=== PATIENT | female | born 1945 ===

== ENCOUNTER 2025-02-12 09:25 | Outpatient (REF) | payer OTHER, SELFPAY ==
[2025-02-12 17:26] LABS: MANUAL DIFF FLAG NO
[2025-02-12 17:55] LABS: Basophils Percent Auto 0.5 % (0-2); Eosinophils Absolute Auto 0.1 X10*3/uL (0.0-0.4); Eosinophils Percent Auto 1.6 % (0-4); Hematocrit 41.8 % (37.0-47.0); Hemoglobin 13.7 g/dl (12.0-16.0); Imm Gran Abs Auto 0.01 X10*3/uL (0.00-0.03); Imm Gran Pct Auto 0.2 % (0.0-0.4); Lymphocytes Absolute Auto 1.7 X10*3/uL (1.2-4.9); Lymphocytes Percent Auto 29.3 % (20-40); Mean Corpuscular HGB Conc 32.8 g/dl (31.0-35.0); Mean Corpuscular Hemoglobin 27.8 pg (27.0-33.0); Mean Corpuscular Volume 84.8 fL (80.0-98.0); Mean Platelet Volume 12.2 fL (9.4-12.3); Monocytes Absolute Auto 0.5 X10*3/uL (0.1-1.2); Monocytes Percent Auto 9.1 % (2-11); Neutrophils Absolute Auto 3.4 x10*3/uL (2.0-8.3); Neutrophils Percent Auto 59.3 % (45-73); Platelet Count 243 X10*3/uL (160-400); Red Blood Count 4.93 X10*6/uL (4.20-5.50); Red Cell Distribution Width 14.5 % (11.0-16.0); White Blood Count 5.7 X10*3/uL (4.8-10.8)
[2025-02-12 18:00] LABS: Alanine Aminotransferase 16 U/L (0-31); Albumin Level 4.5 g/dL (3.5-5.0); Alkaline Phosphatase 86 U/L (39-117); Anion Gap 14 (12-20); Aspartate Amino Transferase 23 U/L (5-31); Bilirubin Total 0.3 mg/dL (0.0-1.0); Blood Urea Nitrogen 12 mg/dL (9-16); Calcium 9.8 mg/dL (8.4-10.2); Carbon Dioxide 27 mmol/L (22-29); Chloride 102 mmol/L (96-108); Estimated Glomerular Filt Rate > 60; Glucose Random 103 mg/dL (60-115); Sodium 139 mmol/L (135-145); Total Protein 7.6 g/dL (6.5-8.0)
[2025-02-12 18:16] LABS: Ferritin 45 ng/mL (10-250); TSH reflex Free T4 3.18 uIU/mL (0.32-4.0)
[2025-02-12 18:30] LABS: Erythrocyte Sedimentation Rate 7 MM/HR (0-20)
[2025-02-12 18:33] LABS: Folate 7.6 ng/mL (> or = 4.0); Vitamin B12 406 pg/mL (200-900)
[2025-02-16 12:09] LABS: Anti Nuclear Antibody Screen NEGATIVE (NEGATIVE)
[2025-02-17 15:53] LABS: Vitamin D 25-OH, D2 <4 ng/mL; Vitamin D 25-OH, D3 26 ng/mL; Vitamin D 25-OH, Total 26 ng/mL (30-100)
== END 2025-02-12 09:26 | disposition home or self-care (01) ==
LOC: HO.HKASLDS 09:25
PROVIDERS: Visit Provider Psychiatry & Neurology Neurology
DX: G25.3 Myoclonus (principal); G25.2 Other specified forms of tremor
CPT/HCPCS: 36415; 80053; 82306; 82607; 82728; 82746; 84443; 85025; 85652; 86038; 99202

== ENCOUNTER 2025-02-12 09:25 | Outpatient (AMB) | payer OTHER, SELFPAY ==
--- NOTE | 2025-02-12 09:29 | MHC.OFFVIS ---
Vital Signs 02/12/25 09:32 Height 5 ft 3 in Weight 133 lb BMI 23.6 BP 128/78 Blood Pressure Location Rt brachial Position Sitting Pulse 66 Pulse Source Pulse Oximeter Pulse Oximetry (%) 97 Oxygen Delivery Method Room Air Intake Visit Reasons: ENP: Parkinson's Intake Note: Patient referred for parkinson's Allergies acetaminophen (From Percocet) Allergy (Unknown, Verified 02/12/25 09:32) Unknown ciprofloxacin (From Cipro) Allergy (Unknown, Verified 02/12/25 09:32) Unknown morphine Allergy (Unknown, Verified 02/12/25 09:32) Unknown oxycodone (From Percocet) Allergy (Unknown, Verified 02/12/25 09:32) Unknown HPI Comments Details: 79Y/o Right handed female comes for evaluation of tremors. she is accompanied by her Grand daughter who is also her AGRICULTURAL LOAN OFFICER. she started noticing tremors in her jonny hand mainly with activity about 2 years ago and is worse now.You have trouble writing, using utensils, buttoning her shirt , holding a plate, cut or drink liquids etc etc she also reports some gen jerky movements which she calls chills intermittently. she denies any neck pain but she has some back pain. No known family h/o tremors No h/o head injury she has anxiety.No exposure to neuroleptics sleep is OK. SHe is not sure if she snores.she has leg pain when she is trying to sleep.she diggs slot of leg cramps . [facility] Medical History (Updated 02/12/25 @ 10:07 by Maliha Ellis MD) Gait disorder Myoclonus Coarse tremors Prediabetes Hypothyroidism Diverticulosis Discoid lupus Depression Constipation Surgical History H/O: hysterectomy Family History Mother Cervical cancer Sister Dementia Sister Type 2 diabetes mellitus Social History Alcohol intake: never Patient Tobacco Use Status: Never used Tobacco Physical Exam Vital Signs: Last Vital Signs Pulse 66 02/12/25 09:32 BP 128/78 02/12/25 09:32 Pulse Ox 97 02/12/25 09:32 Oxygen Delivery Method Room Air 02/12/25 09:32 BMI result Body Mass Index 23.6 Const General: cooperative and in distress Nutritional Appearance: average body habitus Orientation/consciousness: patient oriented x3 Eyes Pupils: Equal, round and reactive pupils present Neuro Other: gen joint pain Intermittent myoclonus like jerks in the whole body Jonny UE postural and action tremors anxious gait- antalgic , normal base , with cane slow. General: patient oriented x3 and moves all extremities Cranial nerves: Yes Facial sensation intact/muscles of mastication intact, Yes Equal, round and reactive pupils present, Yes Bilaterally intact EOM present, Yes Nystagmus not present, Yes Normal facial strength present, Yes Midline tongue present and Yes Symmetric palate elevation present Cognition (Neuro): normal cognition Gait exam (Neuro): Antalgic gait present Motor exam (neuro): 5/5 motor strength present throughout Deep tendon reflexes (DTR's): Right triceps reflex intensity grade: 1+, Left triceps reflex intensity grade: 1+, Rt Biceps (C5, C6): 1+, Left biceps reflex intensity grade: 1+, Right brachioradialis reflex intensity grade: 1+, Left brachioradialis reflex intensity grade: 1+, Right patellar reflex intensity grade: 1+, Left patellar reflex intensity grade: 1+ and Right ankle reflex intensity grade: 1+ Coordination: [id number] test normal Assessment & Plan Assessment & Plan (1) Coarse tremors: Comment: exaggerated physiological, anxiety ? pain , ? fibromyalgia Code(s): G25.2 - Other specified forms of tremor Category: Medical (2) Myoclonus: Comment: intermittent chills Code(s): G25.3 - Myoclonus Category: Medical Plan I will evaluate her with EEG , check Vit B 12 D TSH CBC cMP FLAKITO ESR F/u with Rheumatology for gen pain joint pain - fibromyalgia Increase gabapentin to 100-100-300 mg PT for gait training Orders: Orders Comprehensive Met. Panel Today G25.3 - Myoclonus Complete Blood Count Auto Diff Today G25.3 - Myoclonus TSH reflex Free T4 Today G25.3 - Myoclonus Vitamin B12 and Folate Today G25.3 - Myoclonus Vitamin D 25-OH (D2 and D3) Today G25.3 - Myoclonus Erythrocyte Sedimentation Rate Today G25.3 - Myoclonus FLAKITO Reflex Titer and Pattern Today G25.3 - Myoclonus Ferritin Today G25.3 - Myoclonus EEG electroencephalogram Today G25.3 - Myoclonus PT Evaluation and Treatment Today R26.9 - Unspecified abnormalities of gait and mobility Medications: New gabapentin 1 cap qam , 1 cap q noon and 3 caps qhs orally; 150 caps 6RF Coding Level of Care Code New Pt Level 4 (52481) Complex EM visit Add On G2211 Diagnoses Coarse tremors G25.2 Myoclonus G25.3
[2025-02-12 09:32] VITALS: BP 128/78; PULSE 66; O2SAT 97; BMI 23.6
--- OUTSIDE RECORDS SUMMARY | 2025-02-12 10:09 | XMS_ITS | Patient Health Record ---
Author Organization [facility] [place] Address [address] [place] [address] Care Team Providers Care Cone Worker Name Role Phone Uyen Segundo MD Primary Care Provider Unavail able Al Hillman Unavailable [phone] Allergies Allergen (clinical drug ingredient) Drug/Non Drug Allergy documented on EMR Reaction Allergy Type Onset Date Status Aleve vomiting Drug Allergy Active Reason For Referral No Information Medications Medication SIG (Take, Route, Frequency, Duration) Notes Start Date End Date Status Levothyroxine Sodium 0.075 mg 1 tablet on an empty stomach in the morning Orally Once a day for 30 day(s) Active Tylenol Active Aleve 220 MG 1 tablet as needed Orally every 12 hrs for 05 days Active Problems Problem Type SNOMED Code ICD Code Onset Dates Problem Status W/U Status Risk Notes Problem Bursitis (30743516) Bursitis (727.3) Active confirmed Problem Calcaneal spur (96889704) Calcaneal spur (726.73) Active confirmed Problem Myositis (17957378) Myositis (729.1) Active confirmed Problem Pain in limb (35531372) Pain in Limb (729.5) Active confirmed Problem Plantar fasciitis (685789060) Plantar Fasciitis (728.71) Active confirmed Plan Of Treatment Pending Test Test Name Order Date X ray : Foot, right 3V 01/13/2013 [id number] TENDON SHEATH/LIGAMENT 0 01/27/2013 Insurance Providers Payer Name Payer Address Payer Phone Subscriber Number Group Number Insured Name Patient Relationship to Insured Coverage Start Date Coverage End Date Medicare National Govt Svcs Inc [address] [place] [phone] [id number] Kirsty Xiao Self - patient is the insured Health [facility] [address] [place] [address] [phone] [id number] Kirsty Xiao Self - patient is the insured Medical (General) History Medical History History ICD Code chicken pox LUPUS measles mumps thyroid disorder Surgical History Surgery Date(Month/Year) hysterectomy 1990 cyst removal 1971
== END 2025-02-12 10:11 | disposition home or self-care (01) ==
LOC: HO.HSMS 09:26
PROVIDERS: Visit Provider Psychiatry & Neurology Neurology
DX: G25.2 Other specified forms of tremor (principal); G25.3 Myoclonus
CPT/HCPCS: 99204; G2211

== ENCOUNTER 2025-04-09 09:45 | Outpatient (REF) | payer OTHER, SELFPAY ==
--- NOTE | 2025-04-09 09:51 | EEG_ITS ---
Reason for EEG: Myoclonus Photic stimulation: Completed Hyperventilation: Not performed Sedation: No Skull defect: No Medication: gabapentin Behavioral State: Awake, restless with periods of agitation History: H/O gait disorder, myoclonus, coarse tremor, prediabetes, hypothyroidism, diverticulosis, lupus, depression, constipation- pt is right handed having 2 year history of generalized jerky movements she calls chills Forensic Economist Comments: EMG lead was placed on right forearm to monitor intermittent shaking, during this study whole body jerking motion was noted at times during this study. Study report: This is a 16 channel EEG with an EKG lead. Patient is reported awake. Frequent muscle artifacts are noted during the tracing. When artifacts are not seen, background EEG rhythm is about 10-12 hertz 5-50 microvolt posteriorly and lower amplitude fast anteriorly. Photic stimulation does not produce any significant driving. Hyperventilation is not performed. No obvious asymmetry or paroxysmal tendencies noted. No obvious sharp waves or spikes are noted. Cardiac lead does not reveal any significant abnormality. Impression: Somewhat limited study because of frequent muscle artifacts but no obvious epileptic tendency was noted. MTDD
--- OUTSIDE RECORDS SUMMARY | 2025-04-09 10:26 | XMS_ITS | Clinical Summary ---
Author Organization [facility] Address [address] [place] [address] Care Team Providers Care Night Cleaner Name Role Phone Unavailable Primary Care Provider Unavailabl e Social History Tobacco Use Types Packs/Day Years Used Date Smoking Tobacco: Never Assessed Comments Unknown Sex and Gender Information Value Date Recorded Sex Assigned at Not on file Legal Sex Female 2:14 AM EST Gender Identity Not on file Sexual Orientation Not on file Plan of Treatment Health Maintenance Due Date Last Done Comments DTaP,Tdap,and Td Vaccines (1 - Tdap) 1966 Pneumococcal Vaccine: 50+ Ye ars (1 of 1 - PCV) 1997 Zoster Vaccines (1 of 2) 1997 RSV Immunization Adult Patie nts (1 - 1-dose 75+ series) 2022 COVID-19 Vaccine (1 - 2023-2 5 season) 2024 Depression Screening 08/27/2024 Influenza Vaccine (#1) 2025 HIB Vaccines Aged Out No longer eligi ble based on patient's age to complete this topic HPV Vaccines Aged Out No longer eligi ble based on patient's age to complete this topic Hepatitis A Vaccines Aged Out No long er eligible based on patient's age to complete this topic Hepatitis B Vaccines Aged Out No long er eligible based on patient's age to complete this topic IPV Vaccines Aged Out No longer eligi ble based on patient's age to complete this topic MMR Vaccines Aged Out No longer eligi ble based on patient's age to complete this topic Meningococcal ACWY Vaccine Aged Out N o longer eligible based on patient's age to complete this topic Meningococcal B Vaccine Aged Out No l onger eligible based on patient's age to complete this topic RSV Immunization Patients Un carmelina 20 months Aged Out No longer eligible b ased on patient's age to complete this topic Varicella Vaccines Aged Out No longer eligible based on patient's age to complete this topic
--- OUTSIDE RECORDS SUMMARY | 2025-04-09 10:26 | XMS_ITS | Patient Health Record ---
Author Organization [facility] [place] Address [address] [place] [address] Care Team Providers Care Monogram Technician Name Role Phone Uyen Segundo MD Primary Care Provider Unavail able Al Hillman Unavailable [phone] Allergies Allergen (clinical drug ingredient) Drug/Non Drug Allergy documented on EMR Reaction Allergy Type Onset Date Status Aleve vomiting Drug Allergy Active Reason For Referral No Information Medications Medication SIG (Take, Route, Frequency, Duration) Notes Start Date End Date Status Levothyroxine Sodium 0.075 mg 1 tablet on an empty stomach in the morning Orally Once a day; Duration: 30 day(s) Active Tylenol Active Aleve 220 MG 1 tablet as needed Orally every 12 hrs; Duration: 05 days Active Problems Problem Type SNOMED Code ICD Code Onset Dates Problem Status W/U Status Risk Notes Problem Bursitis (88330616) Bursitis (727.3) Active confirmed Problem Calcaneal spur (01791032) Calcaneal spur (726.73) Active confirmed Problem Myositis (27330274) Myositis (729.1) Active confirmed Problem Pain in limb (45041729) Pain in Limb (729.5) Active confirmed Problem Plantar fasciitis (513982437) Plantar Fasciitis (728.71) Active confirmed Plan Of Treatment Pending Test Test Name Order Date X ray : Foot, right 3V 01/13/2013 [id number] TENDON SHEATH/LIGAMENT 0 01/27/2013 Insurance Providers Payer Name Payer Address Payer Phone Subscriber Number Group Number Insured Name Patient Relationship to Insured Coverage Start Date Coverage End Date Medicare National Govt Svcs Inc [address] [place] [phone] [id number] Kirsty Xiao Self - patient is the insured Health [facility] [address] [place] [address] [phone] [id number] Kirsty Xiao Self - patient is the insured Medical (General) History Medical History History ICD Code chicken pox LUPUS measles mumps thyroid disorder Surgical History Surgery Date(Month/Year) hysterectomy 1990 cyst removal 1971
--- OUTSIDE RECORDS SUMMARY | 2025-04-09 10:27 | XMS_ITS | Clinical Summary ---
Author Organization [facility] Address [address] [place] [address] Care Team Providers Care Waterproof Material Folder Name Role Phone Unavailable Primary Care Provider Unavailabl e Source Comments PLEASE NOTE, if this patient is a minor, it may be UNLAWFUL to discuss sensitive information that is contained in these records (such as FAMILY PLANNING, MENTAL HEALTH or SUBSTANCE ABUSE) with the minor patient's parent or other person without the patient's specific authorization.[facility] Allergies Active Allergy Reactions Criticality Noted Date Comments Ciprofloxacin 12/09/2021 Morphine 12/09/2021 Oxycodone-Acetaminophen 12/09/2021 Medications azaTHIOprine (IMURAN) 50 mg tablet Refills 0, Maintenance, 12/31/19 9:57:00 EDT 12/31/19 20 Active hydrOXYchloroQUINE (PLAQUENIL) 200 mg tabletIndications: Discoid lupus Take 1 Tablet by mouth once daily 30 Tablet 2 12/10/19 22 Active ketorolac (ACULAR) 0.5 % ophthalmic solution INSTILL 1 DROP INTO BOTH EYES TWICE A DAY 02/02/20 23 Active VITAMIN D3 25 mcg (1,000 unit) tabletIndications: Vitamin D deficiency Take 2 Tablets by mouth once daily 180 Tablet 1 07/20/20 23 Active lisinopriL 5 mg tabletIndications: Hypertension, unspecified type Take 1 Tablet by mouth once daily 90 Tablet 2 07/20/20 23 Active docusate sodium (COLACE) 100 mg tabletIndications: Slow transit constipation Take 1 Tablet by mouth daily. 90 Tablet 3 07/20/20 23 Active cyanocobalamin (VITAMIN B-12) 1,000 mcg tabletIndications: Vitamin B12 deficiency Take 1 Tablet by mouth once daily 90 Tablet 1 07/20/20 23 Active MISCELLANEOUS MEDICAL SUPPLY MISCIndications:Di scoid lupus,Hx of falling Wheeled walker, rollator. Hx of falls 1 Each 07/20/20 23 Active sertraline (ZOLOFT) 100 mg tablet Take 0.5 Tablets by mouth once daily 90 Tablet 07/26/20 23 Active MISCELLANEOUS MEDICAL SUPPLY MISCIndications:Di scoid lupus,Vitamin D deficiency,Underwe ight,Vitamin B12 deficiency,Other specified hypothyroidism by miscellaneous route 2 (two) times a day Srawberry ensure BID to increase weight/nutrition. 100 Each 2 07/26/20 23 Active melatonin 5 mg tabIndications:Ins omnia, unspecified type Take 1 Tablet by mouth nightly at bedtime 90 Tablet 1 07/31/20 23 Active omeprazole (PRILOSEC) [address] capsuleIndications :Heartburn TAKE ONE CAPSULE BY MOUTH EVERY MORNING BEFORE BREAKFAST 30 Capsule 2 09/21/19 24 Active fluticasone propion-salmeteroL (ADVAIR) 250-50 mcg/dose diskus inhalerIndications :Mild intermittent asthma without complication ([facility]) INHALE 1 PUFF BY MOUTH TWO TIMES A DAY (BULK) 60 Each 2 09/21/19 24 Active gabapentin (NEURONTIN) 100 mg capsuleIndications :Chronic midline low back pain without sciatica TAKE ONE CAPSULE BY MOUTH TWICE A DAY^1R2,1R3 60 Capsule 2 09/21/19 24 Active levothyroxine (SYNTHROID, LEVOXYL) 50 mcg tabletIndications: Other specified hypothyroidism TAKE ONE TABLET BY MOUTH EVERY DAY (ONLY MED IN ROW #1) ^1R1 30 Tablet 2 09/21/19 24 Active Active Problems Problem Noted Date Diagnosed Date Hypertriglyceridemia 07/04/2022 Underweight 07/04/2022 Vitamin D deficiency 07/04/2022 Insomnia 07/04/2022 Chronic pain of both knees 07/04/2022 Chronic low back pain without sciatica Mild intermittent asthma without complication (H -HCC) 07/04/2022 Prediabetes 12/20/2021 Overview (12/20/2021): Lab Results Component Value Date HGBA1C 5.7 (H) 12/19/2021 Reviewed recent labs with patient, she will like to start metformin Recurrent major depressive d isorder, in remission ([facility] V24) 12/09/2021 Other specified hypothyroidism 12/09/2021 Discoid lupus 12/09/2021 Constipation 12/09/2021 Diverticular disease 12/09/2021 Hypertension 12/09/2021 Vitamin B12 deficiency 12/09/2021 Resolved Problems Problem Noted Date Diagnosed Date Resolved Date History of diverticulitis 12/09/2021 Immunizations Immunization Administration Dates Next Due PNEUMOCOCCAL CONJUGATE PCV 13 03/22/2015 PNEUMOCOCCAL POLYSACCHARIDE PPV23 (Pneumovax 23) 02/19/2012 Pfizer-lifecake COVID-19 Vac cine Bivalent, (BARRY PFIZER-BIONTECH COVID-19 VACCINE BIVALENT, (BARRY CAP 07/11/2022 TDAP 07/11/2022 Td (adult) unspecified 02/06/2012 ZOSTER VACCINE, RECOMBINANT (SHINGRIX) 9 Zoster, Live Vaccine (Zostavax) 05/21/2012 Social History Tobacco Use Types Packs/Day Years Used Date Smoking Tobacco: Former Cigarettes Smokeless Tobacco: Never Tobacco Cessation:Counseling Given: Yes Alcohol Use Standard Drinks/Week Comments Not Currently 0 (1 standard drink = 0.6 oz pur e alcohol) Social Connections Answer Date Recorded Connectedness 0 07/18/2023 Financial Resource Strain Answer Date R ecorded Financial Resource Strain 0 2022 Stress Answer Date Recorded Stress 0 07/18/2023 Physical Activity Answer Date Recorded Physical Activity 0 12/09/2021 Food Insecurity Answer Date Recorded Food 0 07/18/2023 Transportation Needs Answer Date Record ed Transportation 0 07/18/2023 Housing Stability Answer Date Recorded Housing 0 07/18/2023 Safety and Environment Answer Date Calvin rded Safety 0 12/09/2021 Utilities Answer Date Recorded Utilities 0 07/18/2023 Employment Answer Date Recorded Employment 0 12/09/2021 Comments No Sex and Gender Information Value Date Recorded Sex Assigned at Female 12/09/2021 9:45 AM PDT Legal Sex Female 10:49 AM PST Gender Identity Female 12/09/2021 9:45 AM PDT Sexual Orientation Straight 12/09/2021 9: 45 AM PDT Last Filed Vital Signs Vital Sign Reading Time Taken Comments Blood Pressure 110/80 07/18/2023 9:01 AM EST Pulse 63 07/18/2023 9:01 AM EST Temperature 36.9 C (98.5 F) 07/18/2023 9:01 AM EST Respiratory Rate 16 07/18/2023 9:01 AM EST Oxygen Saturation 96% 07/18/2023 9:01 AM EST Inhaled Oxygen Concentration - - Weight 44.8 kg (98 lb 12.8 oz) 07/18/2023 9:01 A M EST Height 160 cm (5' 3 ) 02/15/2023 9:59 AM EDT Body Mass Index 17.5 02/15/2023 9:59 AM EDT Plan of Treatment Health Maintenance Due Date Last Done Comments Medicare Annual Wellness Visit 1963 Bone Density Screening 02/18/2012 Imm-Zoster, Recombinant (3 of 3) 01/22/2019 11/28/19 19, 05/21/2012 Imm-RSV (adult) (1 - 1-dose 75+ series) 2022 Diabetes Screening 02/16/2024 02/15/2023, 0 02/15/2023, 10/12/2022, Additional history exists Falls Prevention 02/16/2024 02/15/2023, 12/09/2021 Tobacco Screening 02/16/2024 02/15/2023 [id number] ( season) 2024 07/11/2022, 04/02/2022, 10/01/2021, Additional history exists Hypertension Screening (#1) 07/17/2024 TSH Monitoring 07/18/2024 07/18/2023, 02/25, 02/15/2023, Additional history exists Alcohol and Drug Screen 08/27/2024 10/12/19 23, 02/24/2022, 12/09/2021 Depression Annual Screen 08/27/2024 Imm-Influenza (#1) 2025 Imm-DTaP/Tdap/Td (2 - Td or Tdap) 07/11/2032 022, 02/06/2012 Imm-Pneumococcal 50+ Completed 03/22/2015, 02/19/20 12 Hepatitis C Screening Completed 12/19/2021 Procedures Procedure Name Priority Date/Time Associated Diagnosis Comments TSH W/RFLX FREE T4 Routine 07/18/2023 9: 39 AM EST Other specified hypothyroidism HEMOGLOBIN GLYCOSYLATED A1C Routine 02/15/2023 10:31 AM EDT Routine general medical examination at a health care facility Weight loss Mild intermittent asthma without complication Chronic midline low back pain without sciatica Chronic pain of both knees Insomnia, unspecified type Vitamin D deficiency Underweight Hypertriglyceridemia Prediabetes Vitamin B12 deficiency Hypertension, unspecified type Diverticular disease Discoid lupus Recurrent major depressive disorder, in remission ([facility]) Other specified hypothyroidism HEPATITIS C AB W/RFLX HCV RNA, QT, RT PCR Routine 12/19/2021 10:18 AM EDT Routine general medical examination at a health care facility from Last 3 Months or Most Recently Relevant to Health Maintenance Results * TSH W/RFLX FREE T4 (07/18/2023 9:39 AM EST) TSH W/REFLEX TO FT4 3.67 0.40 - 4.50 mIU/L [facility] Blood Blood / Unknown 07/18/2023 9 :39 AM EST 07/18/2023 9:39 AM EST Giovana Jain PA-C LAB - BLOOD DRAW Final Resul t [facility] [address] [place] [id number], [facility] [address] [place] [phone] * HEMOGLOBIN, GLYCOSYLATED (A1C) (02/15/2023 10:31 AM EDT) HEMOGLOBIN A1C 5.6 <5.7 % of total Hgb [facility] Comment: For the purpose of screening for the presence of diabetes: <5.7% Consistent with the absence of diabetes 5.7-6.4% Consistent with increased risk for diabetes (prediabetes) > or =6.5% Consistent with diabetes This assay result is consistent with a decreased risk of diabetes. Currently, no consensus exists regarding use of hemoglobin A1c for diagnosis of diabetes in children. According to [place] Diabetes Association (ADA) guidelines, hemoglobin A1c <7.0% represents optimal control in non- diabetic patients. Different metrics may apply to specific patient populations. Standards of Medical Care in Diabetes(ADA). Blood Blood / Unknown 02/15/2023 1 0:31 AM EDT 02/15/2023 10:32 AM EDT Narrative [facility] - 02/19/2023 3:07 PM EDT PATIENT UNABLE TO VOID; ADVISED TO RETURN FOR COLLECTION. Sierra Levin SUPERVISOR LEAD BURNING-C LAB - BLOOD DRAW Edited Result - Final Performing Organization Address City/[facility]/ZIP Co de Phone Number [facility] [address] [address], [employer] [place] [employer] [address] [place] [phone] * HEPATITIS C AB W/RFLX HCV RNA, QT, RT PCR (12/19/2021 10:18 AM EDT) HEPATITIS C ANTIBODY NON-REACT GARCÍA NON-REACT GARCÍA [facility] SIGNAL TO CUT-OFF 0.01 <1.00 [facility] Comment: HCV antibody was non-reactive. There is no laboratory evidence of HCV infection. In most cases, no further action is required. However, if recent HCV exposure is suspected, a test for HCV RNA (test code 74543) is suggested. For additional information please refer to http://education.Artoo/faq/FUR66j4 (This link is being provided for informational/ educational purposes only.) Blood Blood / Unknown 12/19/2021 1 0:18 AM EDT 12/19/2021 10:19 AM EDT Zoë Rosario STONEWORK TRACER LAB - BLOOD DRAW Edited Resu lt - Final Performing Organization Address [facility]/ZIP Co de Phone Number [facility] [address] [address], [employer] [address],[facility] [place] [address] from Last 3 Months or Most Recently Relevant to Health Maintenance Insurance [facility]
== END 2025-04-09 09:46 | disposition home or self-care (01) ==
LOC: HO.NEURO 09:45
PROVIDERS: Visit Provider Psychiatry & Neurology Neurology
DX: G25.3 Myoclonus (principal)
CPT/HCPCS: 95816

== ENCOUNTER → 2025-04-09 09:51 | Outpatient (BNV) | payer OTHER, SELFPAY | PROVIDERS: Visit Provider Psychiatry & Neurology Neurology | DX: R45.1 Restlessness and agitation (principal) | CPT/HCPCS: 95816 ==

== ENCOUNTER 2025-08-13 09:41 | Outpatient (AMB) | payer OTHER, SELFPAY ==
--- NOTE | 2025-08-13 09:54 | MHC.OFFVIS ---
Vital Signs 08/13/25 09:55 Height 5 ft 3 in Weight 136 lb 6 oz BMI 24.2 BP 130/80 Blood Pressure Location Rt brachial Position Sitting Pulse 61 Pulse Source Pulse Oximeter Pulse Oximetry (%) 98 Oxygen Delivery Method Room Air Intake Visit Reasons: 6 mo follow up Intake Note: Follow up Coarse tremors and Myoclonus Mopper Required: No Accompanied by: Self / Same As Patient Allergies acetaminophen (From Percocet) Allergy (Unknown, Verified 08/13/25 09:55) Unknown ciprofloxacin (From Cipro) Allergy (Unknown, Verified 08/13/25 09:55) Unknown morphine Allergy (Unknown, Verified 08/13/25 09:55) Unknown oxycodone (From Percocet) Allergy (Unknown, Verified 08/13/25 09:55) Unknown Medication List - Last Reconciled 08/13/25 by Maliha Ellis MD betamethasone, augmented 0.05 % topical cholecalciferol (vitamin D3) 1,000 units PO cholecalciferol (vitamin D3) 62.5 mcg PO QAM cyanocobalamin (vitamin B-12) mcg PO DAILY docusate sodium (DOK) mg PO DAILY fluticasone propion-salmeterol 250-50 mcg/dose inhalation gabapentin 1 cap qam , 1 cap q noon and 3 caps qhs orally; hydroxychloroquine mg PO DAILY ketorolac 0.5% drps ophthalmic (eye) levothyroxine mcg PO DAILY losartan mg PO DAILY melatonin mg PO sertraline mg PO HPI Comments Details: 80Y/o Right handed female comes for follow up of tremors. tremors are better. History from her initial visit- 01/2025she started noticing tremors in her jonny hand mainly with activity about 2 years ago and is worse now.You have trouble writing, using utensils, buttoning her shirt , holding a plate, cut or drink liquids etc etc she also reports some gen jerky movements which she calls chills intermittently. she denies any neck pain but she has some back pain. No known family h/o tremors No h/o head injury she has anxiety.No exposure to neuroleptics sleep is OK. SHe is not sure if she snores.she has leg pain when she is trying to sleep.she diggs slot of leg cramps . [facility] Medical History Gait disorder Myoclonus Coarse tremors Prediabetes Hypothyroidism Diverticulosis Discoid lupus Depression Constipation Surgical History H/O: hysterectomy Family History Mother Cervical cancer Sister Dementia Sister Type 2 diabetes mellitus Social History Alcohol intake: never Patient Tobacco Use Status: Never used Tobacco Physical Exam Vital Signs: Last Vital Signs Pulse 61 08/13/25 09:55 BP 130/80 08/13/25 09:55 Pulse Ox 98 08/13/25 09:55 Oxygen Delivery Method Room Air 08/13/25 09:55 BMI result Body Mass Index 24.2 Const General: cooperative and in distress Nutritional Appearance: average body habitus Orientation/consciousness: patient oriented x3 Eyes Pupils: Equal, round and reactive pupils present Neuro Other: gen joint pain no myoclonus today Jonny UE postural and action tremors- milder anxious gait- antalgic , normal base , with cane slow. General: patient oriented x3 and moves all extremities Cranial nerves: Yes Facial sensation intact/muscles of mastication intact, Yes Equal, round and reactive pupils present, Yes Bilaterally intact EOM present, Yes Nystagmus not present, Yes Normal facial strength present, Yes Midline tongue present and Yes Symmetric palate elevation present Cognition (Neuro): normal cognition Gait exam (Neuro): Antalgic gait present Motor exam (neuro): 5/5 motor strength present throughout Coordination: [id number] test normal Assessment & Plan Assessment & Plan (1) Coarse tremors: Comment: exaggerated physiological, anxiety ? pain , ? fibromyalgia Code(s): G25.2 - Other specified forms of tremor Category: Medical (2) Myoclonus: Comment: intermittent chills Code(s): G25.3 - Myoclonus Category: Medical Plan EEG - normal F/u with Rheumatology for gen pain joint pain - fibromyalgia gabapentin to 100-100-300 mg PT for gait training- declines Medications: Refilled gabapentin 1 cap qam , 1 cap q noon and 3 caps qhs orally; 150 caps 6RF Coding Level of Care Code Est Pt Level 4 (70374) Add On Problem Visit Only Diagnoses Coarse tremors G25.2 Myoclonus G25.3
[2025-08-13 09:55] VITALS: BP 130/80; PULSE 61; O2SAT 98; BMI 24.2
--- OUTSIDE RECORDS SUMMARY | 2025-08-13 11:23 | XMS_ITS | Clinical Summary ---
Author Organization [facility] ity Address [address] [place] [address] Care Team Providers Care Telecommunications Line Mechanic Name Role Phone Unavailable Primary Care Provider [...] nts (1 - 1-dose 75+ series) 2022 Depression Screening 08/27/2024 COVID-19 Vaccine (1 - 2024-2 6 season) 2025 Influenza Vaccine (#1) 2025 HIB Vaccines Aged [...]
--- OUTSIDE RECORDS SUMMARY | 2025-08-13 11:23 | XMS_ITS | Patient Health Record ---
[facility] [place] Address [address] [place] [address] Care Team Providers Care Gas Roller Operator Name Role Phone Uyen Segundo MD Primary Care Provider Unavail able Al Hillman Unavailable [phone] Allergies Allergen (clinical drug ingredient) Drug/Non Drug [...] Status W/U Status Risk Notes Problem Bursitis (25123736) Bursitis (727.3) Active confirmed Problem Calcaneal spur (73654992) Calcaneal spur (726.73) Active confirmed Problem Myositis (97948841) Myositis (729.1) Active confirmed Problem Pain in limb (40481262) Pain in Limb (729.5) Active confirmed Problem Plantar fasciitis (655841045) Plantar Fasciitis (728.71) Active confirmed Plan Of Treatment Pending Test Test Name Order Date X ray : Foot, right 3V 01/13/2013 [id number] TENDON SHEATH/LIGAMENT 0 01/27/2013 Insurance Providers Payer Name Payer Address Payer Phone Subscriber Number Group Number Insured Name Patient Relationship to Insured Coverage Start Date Coverage End Date Medicare [employer] [address] [place] [phone] [id number] Kirsty Xiao Self - patient is the insured [facility] [address] [place] [address] [phone] [id number] Kirsty Xiao Self - patient is the insured Medical (General) History Medical History History ICD Code chicken pox LUPUS measles mumps thyroid disorder Surgical History Surgery Date(Month/Year) hysterectomy 1990 cyst removal 1971
== END 2025-08-13 10:19 | disposition home or self-care (01) ==
LOC: HO.HSMS 09:41
PROVIDERS: Visit Provider Psychiatry & Neurology Neurology
DX: G25.2 Other specified forms of tremor (principal); G25.3 Myoclonus
CPT/HCPCS: 99214; G2211

== ENCOUNTER → 2025-08-13 09:41 | Outpatient (BNVA) | payer OTHER, SELFPAY | PROVIDERS: Visit Provider Psychiatry & Neurology Neurology | DX: G25.2 Other specified forms of tremor (principal); G25.3 Myoclonus; Z79.899 Other long term (current) drug therapy | CPT/HCPCS: 99212 ==